=== PATIENT | female | born 1985 | race Caucasian/White ===

== ENCOUNTER 2022-02-25 13:00 | Outpatient (RCR) | payer OTHER, SELFPAY | END 2022-03-04 13:47 | disposition home or self-care (01) | PROVIDERS: Visit Provider Family Medicine | DX: M25.511 Pain in right shoulder (principal); Z51.89 Encounter for other specified aftercare | CPT/HCPCS: 97110; 97140; 97161 ==

== ENCOUNTER 2022-10-14 11:30 | Inpatient (IN) | payer OTHER, SELFPAY ==
[2022-10-14] VITALS (18 sets, daily range): BP systolic 135–156; BP diastolic 85–96; PULSE 57–67; RESP 16–18; TEMP 36.8–37.1; O2SAT 99–100; BMI 32.0
[2022-10-14 11:10] LABS: Hematocrit 33.4 % (33.0-51.0); Hemoglobin* 11.1 gm/dL (12.0-16.0); Mean Corpuscular HGB Conc 33 gm/dL (32-36); Mean Corpuscular Hemoglobin 30 pg (26-34); Mean Corpuscular Volume 91 fL (80-100); Platelet Count* 271 K/uL (140-440); Red Blood Count 3.66 m/uL (4.00-5.20); White Blood Count* 6.98 K/uL (4.50-11.00)
[2022-10-14 11:28] LABS: Slide Review Reflex No
[2022-10-14 11:30] LABS: Creatinine* 0.9 mg/dL (0.5-1.5); Estimated Glomerular Filt Rate 84 ml/min
[2022-10-14 11:31] LABS: Alanine Aminotransferase* 37 U/L (4-35); Aspartate Amino Transferase* 37 U/L (12-35); Blood Urea Nitrogen* 12 mg/dL (5-24); INR 0.86 (0.91-1.10); Partial Thromboplastin Time* 25 Seconds (23-33); Prothrombin Time 12.3 Seconds
[2022-10-14 11:32] LABS: Fibrinogen* 522 mg/dL (200-450)
[2022-10-14] MEDS: miSOPROStoL 25 MCG/0.25 TABLET PO ×4 (12:24→18:56)
[2022-10-14 12:38] LABS: Total Protein Urine 14 mg/dL
[2022-10-14 12:39] LABS: Creatinine Urine 46.9 mg/dL
--- NOTE | 2022-10-14 20:16 | P.OBHP_ITS ---
OB - H&P: HPI Labor/Induction History of Present Illness Time Seen by Provider: 20:16 Date Seen: 10/14/22 Chief Complaint: The patient is a 37 year old 2 para 0 at 37.0 weeks gestation by LMP and consistent with early ultrasound who presents for assessment of hypertension and ultimately induction of labor for gestational hypertension. Chief complaint: Maternity : 2 Para: 0 Indications for induction: other (Gestational hypertension) Narrative: Zeina Caban is a 37 year old female who presented to clinic this morning for routine care. Initial bp this morning was 155/92. We sent to labor and delivery for serial monitoring and continued to have BPs >140/90. Normal preeclampsia labs. No symptoms of preeclampsia. At 4 hours of monitoring, we elected to proceed with IOL for new onset gestational hypertension at 37 weeks gestation. Agrawal score on admission was 0 with cervix being closed/thick/high. History of Present Dating criteria: based on LMP care: good care Ultrasounds: normal 1st trimester US and abnormal US findings (Marginal cord insertion on survey) Abnormal ultrasound findings: survey: Intrauterine at 19w 5d. presentation is Cephalic. EFW 328 grams, percentile: 60. Growth parameters and estimated weight are appropriate for gestational age. No major structural anomalies identified. No markers for aneuploidy identified. Normal Deepest Vertical Pocket of amniotic fluid: 5.18 cm. Placental location: Posterior fundal. The placental cord insertion site is mar ginal. There is no evidence of placenta previa. The transabdominal cervical length is 3.5 cm. Growth ultrasound: IMPRESSION: Sonographic gestational age 33 weeks 5 days and sonographic due date 10/24/2022. Sonographic age is 11 days ahead of the clinical age. Estimated weight 80th percentile. Abdominal circumference 90th percentile. complications: other (Advanced maternal age (37 years old), Marginal cord insertion) and gestational hypertension complications comment: new onset today Medical complications: none Labs Blood type: A (+) positive Rubella: immune RPR/VDLR: nonreactive HBsAG: negative Narrative: Gestational glucose 121 Review of Systems Status of ROS: Reports: 10 or more systems reviewed and unremarkable except as noted in History and below Meds Home Medications and Allergies Home Medications Medication Instructions Recorded Confirmed Type aspirin 81 mg tablet,delayed 81 mg PO DAILY 10/14/22 10/14/22 History release Allergies Allergy/AdvReac Type Severity Reaction Status Date / Time No Known Drug Allergies Allergy Verified 10/14/22 18:02 OB - H&P: Exam Physical Exam: Vital signs: Temp Pulse Resp BP Pulse Ox 98.4 F 67 16 144/94 H 99 10/14/22 18:29 10/14/22 19:33 10/14/22 18:29 10/14/22 19:33 10/14/22 12:26 Constitutional: Constitutional: no acute distress Routine HEENT Exam: Head: Present atraumatic, normal inspection and normocephalic Routine Neck Exam: Neck: Present full ROM Detailed Neck Exam: Thyroids: Thyroid: Present normal Routine Respiratory Exam: Respiratory: Present CTA bilaterally; Absent crackles or rales Routine Cardiovascular Exam: Cardiovascular: RRR, S1 and S2 Routine Abdominal Exam: Abdominal: Present normal bowel sounds Detailed Labor and Delivery Exam: Patient Gravid: Yes Dilation (cm): 1 Effacement (%): 20 Cervix position: posterior Consistency: medium Cervical ripeness score: 2 Contraction frequency (min): 4 Tachysystole: No Contraction intensity: Mild Fetus (Single): Station: -3 Amniotic Membrane Status: intact Heart Rate Baseline: 125 Monitor Accelerations: Present Monitor Decelerations: None Jail Variability: Moderate (6-25) Routine Back/Spine/Pelvis Exam: Back/Spine: full ROM Routine Skin Exam: Present intact Routine Neurological Exam: Present alert and oriented X3 Routine Psychiatric Exam: Present normal affect OB - Results Labs Labs: Short CBC 10/14/22 Range/Units 11:03 WBC 6.98 (4.50-11.00) K/uL Hgb 11.1 L (12.0-16.0) gm/dL Hct 33.4 (33.0-51.0) % Plt Count 271 (140-440) K/uL BMP 10/14/22 11:03 BUN 12 Creatinine 0.9 Liver Function 10/14/22 Range/Units 11:03 AST 37 H (12-35) U/L ALT 37 H (4-35) U/L OB - Problem Based A/P Additional Plan (1) Term : Status: Acute (2) Advanced maternal age (AMA) in : Problem details: 37 years of age Status: Acute (3) Marginal insertion of umbilical cord: Problem details: Placental cord insertion 3.2 cm from the placental edge on most recent US Status: Acute (4) Gestational hypertension: Start date: 10/14/22 Problem details: Gestational hypertension diagnosed at 37 weeks gestation. Blood pressures not in treatable range. Labs so far within normal limits. NO symptoms/signs of preeclampsia Status: Acute Plan: - Induction of labor today given 37 weeks gestation - serial Blood pressure, preeclampsia labs in am Plan - Cytotec x 4 today. Consult A Doctor catheter placed this evening. Patient tolerated this well with 60 and 60 cc in uterine and vaginal balloons. - low dose pitocin to start between midnight and 1 am - Anticipate , desires epidural for analgesia. Delivery/Labor/Induction Plan Plan: induction Induction method: Intracervical balloon catheter
[2022-10-15] VITALS (80 sets, daily range): BP systolic 92–162; BP diastolic 51–94; PULSE 56–83; RESP 16–18; TEMP 36.6–37.1; O2SAT 92–100
[2022-10-15] MEDS: LACTATED RINGERS 1000 ML 1,000 ML 125 ML IV (01:17)
[2022-10-15] MEDS: OXYTOCIN 30 unit/500 ML in NS 30 UNIT/500 ML BAG IVPB (01:18)
[2022-10-15 06:18] LABS: Hematocrit 33.5 % (33.0-51.0); Hemoglobin* 11.2 gm/dL (12.0-16.0); Mean Corpuscular HGB Conc 33 gm/dL (32-36); Mean Corpuscular Hemoglobin 30 pg (26-34); Mean Corpuscular Volume 91 fL (80-100); Platelet Count* 246 K/uL (140-440); Red Blood Count 3.69 m/uL (4.00-5.20); White Blood Count* 10.17 K/uL (4.50-11.00)
[2022-10-15 06:23] LABS: Slide Review Reflex No
[2022-10-15 06:49] LABS: Alanine Aminotransferase* 34 U/L (4-35); Aspartate Amino Transferase* 32 U/L (12-35); Blood Urea Nitrogen* 13 mg/dL (5-24); Creatinine* 0.9 mg/dL (0.5-1.5); Est. Creatinine Clearance* 107.04; Estimated Glomerular Filt Rate 84 ml/min
--- NOTE | 2022-10-15 07:04 | PM.OBPNL ---
Subjective Time Seen by Provider: 07:04 Date Seen: 10/15/22 Narrative: Patient was able to get some rest overnight. Rating contractions 4/10. No headache or new symptoms. Objective Vital Signs: Last Vital Signs Temp 98.0 F 10/15/22 00:56 Pulse 63 10/15/22 04:50 Resp 16 10/15/22 04:50 BP 144/89 H 10/15/22 04:50 Pulse Ox 96 10/15/22 02:00 Contractions Monitor mode: External Contraction Frequency: 2-4 Contraction pattern: Regular Contraction intensity: Mild Pitocin Rate (mU/min): 2 Assessment Assessment: induction ongoing Station: -3 Status: Category l Heart Rate Baseline: 125 Solder Technician Variability: Moderate (6-25) Monitor Accelerations: Present Monitor Decelerations: None Plan Plan: - Cook catheter to be removed at 8am - titrate pitocin per protocol - Anticipate -Would like epidural when painful - I will plan to come evaluate for AROM over lunch (approximately 12pm)
[2022-10-15] MEDS: LACTATED RINGERS 1000 ML 1,000 ML 121 ML IV (08:21)
[2022-10-15] MEDS: LACTATED RINGERS 1000 ML 1,000 ML 114 ML IV (16:13)
[2022-10-15] MEDS: LABETALOL HCL 5 MG/ML inj IVP ×2 (17:11→19:04)
[2022-10-15] MEDS: MAGNESIUM IV 4 GM/100 ML PIGGYBACK IVPB (17:26)
--- NOTE | 2022-10-15 17:26 | PM.OBPNL ---
Subjective Time Seen by Provider: 17:26 Date Seen: 10/15/22 Narrative: Patient is rating pain 4/10. Is tired, feeling exhausted. No headache, vision changes. Objective Vital Signs: Last Vital Signs Temp 98.1 F 10/15/22 16:34 Pulse 75 10/15/22 17:20 Resp 18 10/15/22 16:34 BP 142/91 H 10/15/22 17:20 Pulse Ox 99 10/15/22 12:36 Pelvic Exam Dilation (cm): 6 Effacement (%): 70 Station: -2 Contractions Monitor mode: External Contraction pattern: Regular Contraction intensity: Strong/Firm Pitocin Rate (mU/min): 12 Assessment Assessment: induction ongoing Station: -2 Status: Category l Heart Rate Baseline: 125 Satellite Communications Operator Variability: Moderate (6-25) Monitor Accelerations: Present Monitor Decelerations: None Plan Plan: - Patient had 2 BP >160 systolic. No symptoms. Now meets criteria for preeclampsia with severe features. - Labetalol x 1 now - Magnesium infusion started - Plan on AROM, patient would like to eat first - Anticipate - repeat preeclampsia labs now - Informed DELIVERY ROOM SUPERVISOR renewable energy consultant due to starting magnesium.
[2022-10-15 18:21] LABS: Hemoglobin* 10.9 gm/dL (12.0-16.0); Mean Corpuscular HGB Conc 33 gm/dL (32-36); Mean Corpuscular Hemoglobin 30 pg (26-34); Mean Corpuscular Volume 91 fL (80-100); Platelet Count* 259 K/uL (140-440); Red Blood Count 3.61 m/uL (4.00-5.20); White Blood Count* 12.75 K/uL (4.50-11.00)
[2022-10-15 18:29] LABS: Slide Review Reflex No
[2022-10-15 18:33] LABS: Alanine Aminotransferase* 34 U/L (4-35); Aspartate Amino Transferase* 37 U/L (12-35); Blood Urea Nitrogen* 11 mg/dL (5-24); Creatinine* 0.9 mg/dL (0.5-1.5); Est. Creatinine Clearance* 107.04; Estimated Glomerular Filt Rate 84 ml/min
[2022-10-15] MEDS: LIDOCAINE 2% (PF) 5 ML VIAL EPIDURAL (19:58)
[2022-10-15] MEDS: ROPIVACAINE 0.2% 100 ml 100 ML 12 MG EPIDURAL (20:04)
--- NOTE | 2022-10-15 20:19 | P.ANBPRC_ITS ---
PFSH PFSH Social History What is your current living situation: I presently have a place to live Problems where you live: no known problems In the past 12 months, utilities in danger of being shut off: no In the past 12 mos, have been you worried that your food would run out before you had money to buy more?: never true In the past 12 mos, the food you bought just didn't last and you didn't have money to buy more?: never true Smoking Status: Never smoker How often does anyone, including family, friends and others, physically hurt you : How often does anyone, including family, friends and others, insult or talk down to you: How often does anyone, including family, friends and others, threaten you with harm: How often does anyone, including family, friends and others, scream or curse at you: Meds Home Medications and Allergies Home Medications Medication Instructions Recorded Confirmed Type aspirin 81 mg tablet,delayed 81 mg PO DAILY 10/14/22 10/14/22 History release Allergies Allergy/AdvReac Type Severity Reaction Status Date / Time No Known Drug Allergies Allergy Verified 10/14/22 18:02 Results Labs Labs: Laboratory Results - last 24 hr 10/15/22 10/15/22 06:10 17:57 WBC 10.17 12.75 H RBC 3.69 L 3.61 L Hgb 11.2 L 10.9 L Hct 33.5 33.0 MCV 91 91 MCH 30 30 MCHC 33 33 Plt Count 246 259 BUN 13 11 Creatinine 0.9 0.9 Estimated Creat Clear 107.04 107.04 Estimated GFR 84 84 AST 32 37 H ALT 34 34 Vital Signs Vital Signs: Last Vital Signs Temp 98.2 F 10/15/22 18:53 Pulse 64 10/15/22 20:17 Resp 18 10/15/22 18:53 BP 120/69 10/15/22 20:17 Pulse Ox 98 10/15/22 20:19 Weight: 116.936 kg Height: 190.5 cm Anesthesia Procedures Epidural Insertion Patient Location: OB Start Time: 19:30 Stop Time: 20:30 Start Date: 10/15/22 Stop Date: 10/15/22 Reason for Block: procedure for pain Patient Position: sitting Performed By: Melinda Horan Preanesthetic Checklist: IV checked, risks and benefits discussed, monitors and equipment checked, pre-op evaluation, timeout performed and anesthesia consent Prep: chlorhexidine gluconate Monitoring: blood pressure monitoring, continuous pulse oximetry and heart rate Approach: midline Vertebral Space: lumbar (1-5) Needle Type: Tuohy needle Injection Technique: continuous catheter (continuous catheter) Needle gauge: 17 Needle Length (cm): 10 cm Needle Insertion Depth (cm): 8 Catheter Gauge: 19 Catheter Type: multi-orifice Catheter at skin depth (cm): 15 Test Dose Result: negative and lidocaine 1.5% with epinephrine 1 to 200,000
[2022-10-15] MEDS: PHENYLEPHRINE 100 MCG/ML SYRINGE IVP ×3 (20:55→21:49)
[2022-10-15] MEDS: LACTATED RINGERS 1000 ML 1,000 ML 75 ML IV (23:28)
[2022-10-16] VITALS (26 sets, daily range): BP systolic 112–156; BP diastolic 65–88; PULSE 63–88; RESP 16; TEMP 36.3–36.8; O2SAT 96–98
[2022-10-16] MEDS: LIDOCAINE 1 % PF 30 ML INJECTION (01:25)
--- NOTE | 2022-10-16 01:56 | W.PM.OBVAGDE ---
OB Procedure Vag Delivery Mother Details Mother Details: The patient is a 37 year-old, 2, Para 0, admitted on 10/14/22 at 37 weeks 0 Days gestation. was complicated by AMA and marginal cord insertion. She was admitted for new onset gestational hypertension. Unfortunately during induction developed preeclampsia with severe features at 1700 on 10/15/2022 requiring starting labetalol x 2 and magnesium. Patient was induced initially with cytotec PO x 4. cook catheter was then placed on 10/14/22 at 2000. Low dose pitocin was started 10/15 at 0100. AROM was performed at 1852. Epidural was placed at that time with good response. : 2 Para: 1 Weeks Gestation: 37.2 Admission Date: 10/14/22 Additional Details Amniotic Membrane Status: AROM Amniotic Membrane Rupture Date: 10/15/22 Amniotic Membrane Rupture Time: 18:52 Amniotic Membrane Fluid Description: Meconium Stained Analgesia/Anesthesia Type: Epidural Waterbirth: No Pitcoin: Yes Intrapartal Events: Labor Induction and Mod/Heavy Meconium Fluid Induction Method: Intracervical balloon catheter, per misoprostol protocol, per pitocin protocol and AROM Labor Onset: 18:52 Complete: 23:36 Pushin:47 Heart: heart tones during second stage were category 2. Good variability, occasional decels with pushing but recovered well. Delivery Details Delivery Date: 10/16/22 Delivery Time: 01:13 Route of delivery: Gender: Female Viability: Alive; Heart Rate Present Position at Delivery: OA Delivery Details: Patient progressed well after AROM. Became complete at 2336 and began pushing at 2347. Baby was Delivered over intact perineum via spontaneous vaginal delivery at 0113. was placed on maternal abdomen.? Cord was clamped and cut after a 30-60 second delay. Nose and mouth were bulb suctioned.? Infant weight pending. Placenta was delivered spontaneously. noted to have marginal cord insertion and 3 vessel cord. Evaluation of perineum showed 2nd degree laceration that was repaired in the usual fashion after administration of lidocaine. QBL was 200 cc. Sharp and sponge count are correct. 1 Minute Interval Total Score: 7 5 Minute Interval Total Score: 8 10 Minute Interval Total Score: 9 Additional Details Shoulder Dystocia: No Placenta Delivery Time: 01:19 Placental Delivery Description: Spontaneous Delivery repair: Vicryl Blood Loss: 200 Laceration: Perineal - 2nd Degree Episiotomy Description: None Blood Loss Measurement Type: QBL Bakri Used: No Sponge/Need Count Correct: Yes Cord Vessel Description: 3 Vessels Event Summary Status: Mother and were stable after delivery. Disposition: no change
[2022-10-16 02:35] LABS: Hematocrit 31.5 % (33.0-51.0); Hemoglobin* 10.6 gm/dL (12.0-16.0); Mean Corpuscular HGB Conc 34 gm/dL (32-36); Mean Corpuscular Hemoglobin 31 pg (26-34); Mean Corpuscular Volume 91 fL (80-100); Platelet Count* 240 K/uL (140-440); Red Blood Count 3.45 m/uL (4.00-5.20); White Blood Count* 16.31 K/uL (4.50-11.00)
[2022-10-16 02:41] LABS: Slide Review Reflex No
[2022-10-16 02:59] LABS: Alanine Aminotransferase* 32 U/L (4-35); Aspartate Amino Transferase* 36 U/L (12-35); Blood Urea Nitrogen* 12 mg/dL (5-24); Creatinine* 1.1 mg/dL (0.5-1.5); Est. Creatinine Clearance* 87.58; Estimated Glomerular Filt Rate 66 ml/min
[2022-10-16] MEDS: IBUPROFEN 600 MG TABLET PO ×2 (04:03→18:02)
[2022-10-16 08:31] LABS: Hematocrit 28.9 % (33.0-51.0); Hemoglobin* 9.7 gm/dL (12.0-16.0); Mean Corpuscular HGB Conc 34 gm/dL (32-36); Mean Corpuscular Hemoglobin 31 pg (26-34); Mean Corpuscular Volume 91 fL (80-100); Platelet Count* 217 K/uL (140-440); Red Blood Count 3.18 m/uL (4.00-5.20); White Blood Count* 14.56 K/uL (4.50-11.00)
[2022-10-16 08:42] LABS: Alanine Aminotransferase* 29 U/L (4-35); Aspartate Amino Transferase* 38 U/L (12-35); Est. Creatinine Clearance* 96.33; Estimated Glomerular Filt Rate 74 ml/min; Slide Review Reflex No
[2022-10-16 08:43] LABS: Blood Urea Nitrogen* 10 mg/dL (5-24)
[2022-10-16] MEDS: LACTATED RINGERS 1000 ML 1,000 ML 75 ML IV (12:04)
[2022-10-16 14:37] LABS: Hemoglobin* 9.2 gm/dL (12.0-16.0); Mean Corpuscular HGB Conc 34 gm/dL (32-36); Mean Corpuscular Hemoglobin 31 pg (26-34); Mean Corpuscular Volume 91 fL (80-100); Platelet Count* 216 K/uL (140-440); Red Blood Count 2.98 m/uL (4.00-5.20); White Blood Count* 13.21 K/uL (4.50-11.00)
[2022-10-16 14:41] LABS: Slide Review Reflex No
[2022-10-16 14:55] LABS: Alanine Aminotransferase* 30 U/L (4-35); Aspartate Amino Transferase* 36 U/L (12-35); Blood Urea Nitrogen* 10 mg/dL (5-24); Creatinine* 0.9 mg/dL (0.5-1.5); Est. Creatinine Clearance* 107.04; Estimated Glomerular Filt Rate 84 ml/min
[2022-10-16 20:23] LABS: Hematocrit 26.9 % (33.0-51.0); Hemoglobin* 9.1 gm/dL (12.0-16.0); Mean Corpuscular HGB Conc 34 gm/dL (32-36); Mean Corpuscular Hemoglobin 31 pg (26-34); Mean Corpuscular Volume 92 fL (80-100); Platelet Count* 233 K/uL (140-440); Red Blood Count 2.94 m/uL (4.00-5.20); White Blood Count* 11.78 K/uL (4.50-11.00)
[2022-10-16 20:38] LABS: Alanine Aminotransferase* 29 U/L (4-35); Aspartate Amino Transferase* 36 U/L (12-35); Blood Urea Nitrogen* 10 mg/dL (5-24); Creatinine* 0.9 mg/dL (0.5-1.5); Est. Creatinine Clearance* 107.04; Estimated Glomerular Filt Rate 84 ml/min
[2022-10-16 20:48] LABS: Slide Review Reflex No
[2022-10-17 00:30] VITALS: BP 146/88; PULSE 68; RESP 14; TEMP 36.6; O2SAT 98
[2022-10-17] MEDS: LABETALOL HCL 100 MG TABLET PO ×3 (01:24→20:56)
[2022-10-17 03:21] VITALS: BP 110/65; PULSE 68; RESP 16; TEMP 36.4; O2SAT 97
[2022-10-17 07:10] LABS: Hemoglobin* 9.8 gm/dL (12.0-16.0)
[2022-10-17 08:34] VITALS: BP 119/79; PULSE 74; RESP 16; TEMP 36.9; O2SAT 98
[2022-10-17] MEDS: DOCUSATE SODIUM 100 MG CAPSULE PO (09:17)
--- NOTE | 2022-10-17 09:58 | PM.OBPNVD1 ---
OB - PN:Subj Subjective Time Seen by Provider: 09:59 Date Seen: 10/17/22 Interval history: Oral labetalol initiated 0100 for elevated, non-severe range blood pressures. Off magnesium 0100. Narrative: Feeling much better off IV magnesium. Minimal perineal pain. Urinating and passing flatus, no BM. Significant LE edema. Kelvin hose in place. Robust urine production. Denies FOSTER or blurry vision. up and down. Baby is sleepy. Continuing to work on latch. OB - PN: Obj Exam Physical Exam: Vital signs: Temp Pulse Resp BP Pulse Ox O2 Del Method 98.5 F 74 16 119/79 98 Room Air 10/17/22 08:34 10/17/22 08:34 10/17/22 08:34 10/17/22 08:34 10/17/22 08:34 10/17/22 08:34 Narrative: General appearance: Well-appearing adult female. Alert, oriented and appropriate. Sitting up in hospital bed. HEENT: EOMI, no conjunctival injection or discharge. MMM. Neck: Supple. CV: RRR, no rubs, murmurs or extra heart sounds. Pulm: CTAB, no wheezes, rales or rhonchi. Abdomen: Soft, non-tender. Fundus palpated at the umbilicus. MSK: Moving all extremities. Ext: Warm and well-perfused. 1+ pitting edema of the bilateral feet and ankles. KELVIN hose in place. Skin: No rashes appreciated over exposed skin. Neuro: Grossly normal strength and sensation. No focal deficits. Psych: Normal affect. OB - PN: Obj Data Labs Labs: Laboratory Results - last 24 hr 10/16/22 10/16/22 10/17/22 14:31 20:17 06:56 WBC 13.21 H 11.78 H RBC 2.98 L 2.94 L Hgb 9.2 L 9.1 L 9.8 L Hct 27.0 L 26.9 L MCV 91 92 MCH 31 31 MCHC 34 34 Plt Count 216 233 BUN 10 10 Creatinine 0.9 0.9 Estimated Creat Clear 107.04 107.04 Estimated GFR 84 84 AST 36 H 36 H ALT 30 29 OB - PN: A/P Vaginal Delivery Assessment and Plan (1) Term : Problem details: S/p vaginal delivery at 37+1. Induced for severe pre-eclampsia. Status: Acute Assessment and Plan: - Normal post- cares - + supplementing with pumped milk vs formula - Anticipate d/c tomorrow 10/18 (2) Advanced maternal age (AMA) in : Problem details: 37 years of age Status: Acute (3) Marginal insertion of umbilical cord: Problem details: Placental cord insertion 3.2 cm from the placental edge on most recent US Status: Acute (4) Severe preeclampsia: Problem details: Diagnosed during labor based on severe range blood pressures. Mild transaminitis, labs otherwise normal. Received IV magnesium, now stopped at 24 hours PP. Oral labetalol initiated 10/17 for non-severe range elevated BP. Status: Acute Assessment and Plan: - Continue oral labetalol 100 mg BID - Continue to monitor LE edema and diuresis. Continue KELVIN wadee. - Contact provider for severe range blood pressures
[2022-10-17 13:07] VITALS: BP 122/77
[2022-10-17 16:35] VITALS: BP 117/74; PULSE 76; RESP 16; TEMP 37; O2SAT 97
[2022-10-17] MEDS: IBUPROFEN 600 MG TABLET PO (20:55)
[2022-10-17 21:07] VITALS: BP 131/81; PULSE 66; RESP 18; TEMP 36.8; O2SAT 97
[2022-10-18 00:04] VITALS: BP 129/85; PULSE 57; RESP 16; O2SAT 98
[2022-10-18 03:34] VITALS: BP 136/94; PULSE 66; RESP 16; O2SAT 97
[2022-10-18 08:15] VITALS: BP 144/93; PULSE 58; RESP 16; TEMP 36.7; O2SAT 99
[2022-10-18] MEDS: LABETALOL HCL 100 MG TABLET PO ×2 (08:28→09:05)
[2022-10-18] MEDS: DOCUSATE SODIUM 100 MG CAPSULE PO (08:28)
--- NOTE | 2022-10-18 09:53 | PM.OBDSVD1 ---
DS: Providers Provider Time Seen by Provider: 09:53 Date Seen: 10/18/22 Date of admission: 10/14/22 11:30 Primary care physician: Yanet Velazquez MD Admitting Clinician: Yanet Velazquez MD Attending Physician on discharge: Yanet Velazquez MD Date of Discharge: 10/18/22 DS: Diagnosis Discharge Diagnosis (1) Term : Status: Acute Problem details: S/p vaginal delivery at 37+1. Induced for severe pre-eclampsia. (2) Severe preeclampsia: Status: Acute Problem details: Diagnosed during labor based on severe range blood pressures. Mild transaminitis, labs otherwise normal. Received IV magnesium, stopped at 24 hours PP. Oral labetalol initiated 10/17 for non-severe range elevated BP. (3) Advanced maternal age (AMA) in : Status: Acute Problem details: 37 years of age (4) Marginal insertion of umbilical cord: Status: Acute Problem details: Placental cord insertion 3.2 cm from the placental edge on most recent US Exam Narrative: Exam Narrative: General appearance: Well-appearing adult female. Alert, oriented and appropriate. Sitting up in hospital bed. HEENT: EOMI, no conjunctival injection or discharge. MMM. Neck: Supple. CV: RRR, no rubs, murmurs or extra heart sounds. Pulm: CTAB, no wheezes, rales or rhonchi. Abdomen: Soft, non-tender. Fundus palpated 2 cm below the umbilicus. MSK: Moving all extremities. Ext: Warm and well-perfused. 1+ pitting edema of the ankles and feet bilaterally. Skin: No rashes appreciated over exposed skin. Neuro: Grossly normal strength and sensation. No focal deficits. Psych: Normal affect. Const: Vital Signs, click to edit/add: Vital Signs - 24 hr 10/17/22 13:07 10/17/22 16:35 10/17/22 21:07 Temperature 98.6 F 98.3 F Pulse Rate [Pulse Oximeter] 76 66 Respiratory Rate 16 18 Blood Pressure [Ri ght Arm] 122/77 117/74 131/81 Pulse Oximetry 97 97 Oxygen Delivery Me thod Room Air Room Air 10/18/22 00:04 10/18/22 03:34 10/18/22 08:15 Temperature 98.1 F Pulse Rate [Pulse Oximeter] 57 L 66 58 L Respiratory Rate 16 16 16 Blood Pressure [Ri ght Arm] 129/85 136/94 H 144/93 H Pulse Oximetry 98 97 99 Oxygen Delivery Me thod Room Air Room Air Room Air OB - DS: Summary Hospital Course Hospital Course: The patient is a 37 year old G 2 P 0 at 37+1 weeks gestation that was admitted to the Center on 10/14/22 for IOL for gestational hypertension. Developed severe range BP and was started on IV magnesium. She had an uncomplicated vaginal delivery. She delivered a viable female infant. She is breast feeding and supplementing. Non-severe range elevated blood pressures after delivery, started on oral labetalol. Titrated to 200 mg BID. Moderate LE edema, improved with KELVIN hose. Otherwise feeling well. Peripartum Data delivery method: Vaginal Laceration description: Periurethral - 2nd Degree complications: none [place] Gender: Female Discharge Plan: Home Time Spent with Patient Time attestation: Total time spent providing and/or coordinating discharge services: Discharge Plan Discharge Disposition: Home, Self-Care Date of Admission: 10/14/22 11:30 Attending Provider on Discharge: Flakita Guy Primary Care Provider: Yanet Velazquez Condition: Stable Anticipated Discharge Date/Time: 10/18/22 09:42 Discharge Medications: New acetaminophen 500 mg Tablet 1,000 mg PO Q6H PRN30 Days Qty: 30 0RF docusate sodium 100 mg Capsule 100 mg PO DAILY Qty: 30 0RF ibuprofen 600 mg Tablet 600 mg PO Q6H PRNQty: 30 0RF labetalol 100 mg Tablet 200 mg PO BID 30 Days Qty: 120 0RF Discontinued aspirin 81 mg tablet,delayed release (DR/EC) 81 mg PO DAILY Discharge Orders: Discharge Order (Routine); Ordered 10/18/22 Ordered By: Flakita Guy Patient Education: Preeclampsia and Eclampsia After Delivery (GEN), OB High Blood Pressure DC, OB Vaginal/Breast Feeding Activity Level: Activity as Tolerated Discharge Diet: Regular Follow Up Appointments: Yanet Velazquez MD [Primary Care Provider] - ([facility] with Dr. Velazquez on Wednesday10/20/22 at 12:45. Both mom and baby will be seen at baby's appointment time, 10:25 AM. ) Forms: MyHealth Info Instructions Discharge Comments: - solid waste facility supervisor BP cuff - Check BP once daily and write it down. Bring record to follow-up appointment - Goal for BP, less than 140/90. Numbers higher than 160/110 or new symptoms are a reason to call the [facility] on-call or Center right away
== END 2022-10-18 11:53 | disposition home or self-care (01) | DRG 807 ==
LOC: OB OUT 18:04 → OB 18:04
PROVIDERS: Admitting Provider Family Medicine; PCP Family Medicine; Visit Provider Family Medicine
DX: O13.4 Gestational [pregnancy-induced] hypertension without significant proteinuria, complicating childbirth (principal); Z37.0 Single live birth; O14.14 Severe pre-eclampsia complicating childbirth; O77.0 Labor and delivery complicated by meconium in amniotic fluid; O70.1 Second degree perineal laceration during delivery; Z3A.37 37 weeks gestation of pregnancy
CPT/HCPCS: 01967; 36415; 59200; 82565; 82570; 84156; 84450; 84460; 84520; 85018; 85027; 85384; 85610; 85730; 86850; 86900; 86901; 88307; A9270; C1726; J2001; J2370; J2795; J3475; J7120

== ENCOUNTER 2023-03-31 15:59 | Outpatient (CLI) | payer OTHER, SELFPAY ==
--- NOTE | 2023-03-31 16:18 | P.LACCB_ITS ---
Consult Note - Mom Date of Visit Date of visit: 03/31/23 sales consultant residential manager: Svetlana Ellison Visit Code: Visit Patient's Information Phone number: [phone] : 1 Para: 1 Allergies No Known Drug Allergies Allergy (Verified 10/14/22 18:02) Mother's Medical History: Medical History (Updated 10/26/22 @ 00:00 by Background Daemon) Severe preeclampsia ?O14.10 - Severe pre-eclampsia, unspecified trimester (ICD-10) Delivery Information Delivery type: Vaginal Weeks Gestation: 37.1 Gestational Age: AGA Baby's Information Baby's Age at Visit: 5.5 months Reason for Consult Reason for Consult: difficulty with supply/pumping Past Experience Past Experience: No Assessments/Interventions Assessments/Interventions: Met with mom of this now 5.5 month old ex- term AGA baby for concerns with her supply from pumping. She states she nurses baby when she's home with her offering both sides and baby seems satisfied after a 10 - 20 minute nursing session. 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 She's using a new Spectra with a 16 mm flange on her right and an 18 mm flange on her left. She pumps 8 - 10 oz total/day while baby is taking 20 oz/day. Mom also pumps BID on her days off. She's tried breast massage while pumping, looking at pictures/videos of her daughter, having a blanket with her that smells like baby, and heat without any real improvement in her supply. She was measured for flange size and she measures 12-13 mm on the right and 13- 14 mm on the left. At this pumping session she started with nipple stimulation, breast massage, and warm packs. A pattern of lower vacuum during the massage phase, and the a gradual increase in the vacuum pressure during the expression phase was tried. When the flow slowed she went back to the massage mode and ended the 15 minutes session with expression. There was really no difference in the amount she pumped. With hand expression however, she got about another 15 ml total with even some spraying of milk which she reported she'd never seen before. Plan: 1. Try a smaller flange size and handout give.n 2. Nipple stimulation and breast massage before pumping to help stimulate let- down. 3. Try the above pumpig pattern with her electric pump and see if after a few days she notices an increase. 4. Could also try a hand pump or try a pumping session with just hand expression as she may respond better to one of those methods. 5. If she uses a pump encouraged her to always end with hand expression as it really made a difference at this session. 6. Could consider seeing a chiropractor, massage therapist, copper miner blasting. 7. Gave list of herbal supplements she could also try, but stressed the smaller flange size and hand expression are probably the most important changes. Patients declined a f/u call but will reach out with any future concerns/questions. Meds Home Medications and Allergies Allergies Allergy/AdvReac Type Severity Reaction Status Date / Time No Known Drug Allergies Allergy Verified 10/14/22 18:02
== END 2023-03-31 16:00 | disposition home or self-care (01) ==
LOC: OB LAC 16:00
PROVIDERS: PCP Family Medicine; Visit Provider Family Medicine
DX: Z39.1 Encounter for care and examination of lactating mother (principal)
CPT/HCPCS: 99211

== ENCOUNTER 2023-04-15 13:00 | Outpatient (RCR) | payer OTHER, SELFPAY | END 2023-08-13 23:59 | disposition home or self-care (01) | PROVIDERS: PCP Family Medicine; Visit Provider Family Medicine | DX: N39.3 Stress incontinence (female) (male) (principal); M62.89 Other specified disorders of muscle; R29.898 Other symptoms and signs involving the musculoskeletal system; Z51.89 Encounter for other specified aftercare | CPT/HCPCS: 97110; 97140; 97162; 97535 ==

== ENCOUNTER 2024-02-10 13:00 | Outpatient (RCR) | payer OTHER, SELFPAY | END 2024-06-08 13:58 | disposition home or self-care (01) | PROVIDERS: PCP Family Medicine; Visit Provider Family Medicine | DX: M25.572 Pain in left ankle and joints of left foot (principal); G89.29 Other chronic pain; M62.81 Muscle weakness (generalized); Z51.89 Encounter for other specified aftercare | CPT/HCPCS: 97110; 97140; 97161 ==